=== PATIENT | female | born 1975 | race Two or more races ===

== ENCOUNTER 2016-12-16 10:10 | Emergency (ER) | payer MEDICAID ==
[~2016-12-16] VITALS: Ht 167.6 cm; Wt 127.0 kg
[~2016-12-16 10:10] MED LIST: BIRTH CONTROL; CLON2TAB; GABA100C; HYDR-4663; LEVO25TA9; SERT-135
[2016-12-16 10:26] VITALS: BP 113/69
[2016-12-16] MEDS ORDERED: KETOROLAC TROMETH 60MG/2ML VIAL IM ONE (12:15)
== END 2016-12-16 13:36 | disposition home or self-care (01) ==
LOC: ER 10:10
DX: S16.1XXA Strain of muscle, fascia and tendon at neck level, initial encounter (principal); S39.012A Strain of muscle, fascia and tendon of lower back, initial encounter; Z88.0 Allergy status to penicillin; V43.62XA Car passenger injured in collision with other type car in traffic accident, initial encounter; Y93.89 Activity, other specified; Y99.8 Other external cause status; Y92.488 Other paved roadways as the place of occurrence of the external cause
CPT/HCPCS: 72040; 72100; 96372; 99284; J1885